=== PATIENT | female | born 1960 | race Two or more races ===

== ENCOUNTER 2021-12-29 09:44 | Emergency (ER) | payer MEDICARE, OTHER ==
[~2021-12-29] VITALS: Ht 157.5 cm; Wt 72.6 kg
[2021-12-29 09:51] VITALS: BP 151/77
[2021-12-29] MEDS ORDERED: IBUPROFEN 600 MG TABLET ONE (10:37)
[2021-12-29] MEDS ORDERED: CYCLOBENZAPRINE 10 MG TABLET ONE (10:37)
[2021-12-29] MEDS ORDERED: IBUPROFEN 600 MG TABLET PO ONE (11:00)
[2021-12-29] MEDS ORDERED: CYCLOBENZAPRINE 10 MG TABLET PO ONE (11:00)
[2021-12-29] MEDS ORDERED: CYCL10TA9 PO ×2 (11:08→11:32)
[2021-12-29] MEDS ORDERED: IBUP-1957 PO ×2 (11:08→11:32)
--- NOTE | 2021-12-29 11:34 | NUR ---
Patient discharged to home in stable condition. Written and verbal after care instructions given. Patient verbalizes understanding of instruction.
== END 2021-12-29 11:35 | disposition home or self-care (01) ==
LOC: ER 10:05
DX: S16.1XXA Strain of muscle, fascia and tendon at neck level, initial encounter (principal); V49.9XXA Car occupant (driver) (passenger) injured in unspecified traffic accident, initial encounter; Y93.89 Activity, other specified; Y92.89 Other specified places as the place of occurrence of the external cause; Y99.8 Other external cause status
CPT/HCPCS: 70450-TC; 71045-TC; 72125-TC